=== PATIENT | female | born 1940 ===

== ENCOUNTER 2022-09-22 10:15 | Emergency (ER) | payer OTHER, BC ==
[2022-09-22 10:32] VITALS: BP 120/60; PULSE 64; RESP 16; TEMP 98.3; BMI 20.8
[2022-09-22] MEDS ORDERED: ACETAMINOPHEN 500 MG TABLET (FP) PO ONE (11:13)
[2022-09-22] MEDS ORDERED: ACETAMINOPHEN 500 MG TABLET (FP) ONE (11:33)
[2022-09-22 12:35] LABS: HEMATOCRIT 39.3 % (32.4-45.2); HEMOGLOBIN 13.4 G/dL (10.7-15.3); MCH 31.5 pg (25.7-33.7); MEAN CELL VOLUME 92.8 fl (80-96); MEAN PLT VOLUME 7.9 fl (7.5-11.1); PLATELET COUNT 196.9 10^3/uL (134-434); RBC 4.24 10^6/uL (3.60-5.2); RDW 14.3 % (11.6-15.6); WHITE BLOOD COUNT 7.5 10^3/uL (4.0-10.8)
[2022-09-22 12:41] LABS: PLATELET ESTIMATE ADEQUATE
[2022-09-22 12:43] LABS: ALBUMIN 3.8 g/dl (3.4-5.0); BILIRUBIN,TOTAL 0.9 mg/dl (0.2-1); CALCIUM 9.1 mg/dl (8.5-10); CREATININE 0.5 mg/dl (0.55-1.3); TOT PROT 6.3 g/dl (6.4-8.2)
== END 2022-09-22 15:25 | disposition home or self-care (01) ==
LOC: FER 10:15
DX: M54.50 Low back pain, unspecified (principal); M25.512 Pain in left shoulder; W19.XXXA Unspecified fall, initial encounter
CPT/HCPCS: 0241U-QW; 36415; 70450-TC; 71045-TC-FY; 72125-TC; 72131-TC; 73030-TC-LT-FY; 80053; 82550; 84484; 85027; 93005; 99285-25

== ENCOUNTER 2022-10-03 06:34 | Emergency (ER) | payer OTHER, BC ==
[2022-10-03 06:49] VITALS: BP 114/56; PULSE 67; RESP 18; TEMP 97.9; BMI 19.6
[2022-10-03] MEDS ORDERED: ACETAMINOPHEN 500 MG TABLET (FP) PO ONE (07:18)
[2022-10-03] MEDS ORDERED: ACETAMINOPHEN 500 MG TABLET (FP) ONE (07:35)
== END 2022-10-03 10:47 | disposition home or self-care (01) ==
LOC: SUPCPDRO 06:34 → FER 06:34
DX: S32.010A Wedge compression fracture of first lumbar vertebra, initial encounter for closed fracture (principal); Y99.9 Unspecified external cause status
CPT/HCPCS: 72131-TC; 72192-TC; 99284-25